=== PATIENT | female | born 1980 | race African-American/Black ===

== ENCOUNTER 2017-01-14 06:08 | Emergency (ER) | payer SELFPAY ==
[~2017-01-14] VITALS: Ht 165.1 cm; Wt 65.0 kg
[2017-01-14] MEDS ORDERED: SODIUM CHLORIDE 0.9% 1,000 ML IV ONE (10:14)
[2017-01-14] MEDS ORDERED: ONDANSETRON HCL 4MG/2ML VIAL IV ONE (10:15)
[2017-01-14] MEDS ORDERED: MORPHINE SULFATE 4 MG/ML CPJ (NOT FOR IM USE) IV ONE (10:15)
[2017-01-14 10:37] LABS: BASOPHILS % 0.4 % (0.0-2.0); EOSINOPHILS % 0.3 % (0.0-5.0); LYMPHOCYTES % 17.6 % (20.0-50.0); MEAN CORPUSCULAR HEMOGLOBIN 29.9 pg (28.0-32.0); MEAN CORPUSCULAR HGB CONC 33.2 g/dL (31.0-37.0); MEAN CORPUSCULAR VOLUME 90.2 fL (81.0-99.0); MEAN PLATELET VOLUME 7.5 fl (7.4-10.4); MONOCYTES % 5.4 % (2.0-8.0); NEUTROPHILS % 76.3 % (40.0-76.0); PLATELET 266 x1000/uL (130-400); RED BLOOD CELL COUNT 3.99 mill/uL (4.2-5.4); RED CELL DISTRIBUTION WIDTH 15.3 % (11.6-14.6); WHITE BLOOD COUNT 8.1 x1000/uL (4.5-11.0)
[2017-01-14 10:43] LABS: ANION GAP 9; CALCIUM 9.3 mg/dL (8.5-10.1); CARBON DIOXIDE 30 mEq/L (21-32); CHLORIDE 106 mEq/L (98-107); INDEX HEMOLYSI 1 (1-3); INDEX ICTERIC 1 (1-4); INDEX LIPEMIC 1 (1-3); UREA NITROGEN BLOOD 6 mg/dL (7-21)
[2017-01-14 10:47] LABS: ALANINE AMINOTRANSFERASE 11 IU/L (13-61); eGFR > 60 mL/min (>60)
[2017-01-14 12:53] LABS: CLARITY URINE CLEAR (CLEAR); GLUCOSE URINE NEGATIVE (NEGATIVE); KETONES URINE NEGATIVE (NEGATIVE); LEUKOCYTE ESTERASE URINE 2+ (NEGATIVE); NITRITE URINE NEGATIVE (NEGATIVE); OCCULT BLOOD URINE 3+ (NEGATIVE); PROTEIN URINE NEGATIVE (NEGATIVE); SPECIFIC GRAVITY URINE 1.007 (1.005-1.030); UROBILINOGEN URINE 0.2 E.U./dL (0.2-1.0)
[2017-01-14 13:21] LABS: COLOR URINE BLOODY (YELLOW)
[2017-01-14 13:22] LABS: BACTERIA URINE TRACE; RBC URINE 50-100 /hpf (0-2); SQUAMOUS EPITHELIAL CELL URINE 1+ /lpf (RARE/1+)
[2017-01-14] MEDS ORDERED: KETOROLAC 30MG/ML VIAL IV ONE (14:15)
[2017-01-14 15:07] VITALS: BP 124/85
== END 2017-01-14 15:11 | disposition home or self-care (01) ==
LOC: ER 08:30
DX: D25.9 Leiomyoma of uterus, unspecified (principal); F17.200 Nicotine dependence, unspecified, uncomplicated; F12.10 Cannabis abuse, uncomplicated; N76.0 Acute vaginitis
CPT/HCPCS: 36415; 76830; 76856; 80053; 81001; 85025; 87210; 87491; 87591; 96361; 96374; 96375; 99285; J1885; J2270; J2405; J7030; Z7610

== ENCOUNTER 2017-01-19 17:51 | Emergency (ER) | payer SELFPAY ==
[~2017-01-19] VITALS: Ht 165.1 cm; Wt 67.0 kg
[2017-01-19] MEDS ORDERED: CEFTRIAXONE SODIUM 250 MG/VIAL IM ONE (20:00)
[2017-01-19] MEDS ORDERED: AZITHROMYCIN 500 MG TABLET PO ONE (20:00)
[2017-01-19] MEDS ORDERED: LIDOCAINE HCL 1% 20ML VIAL (Pyxis) INJ INFIL ONE (20:00)
[2017-01-19 21:30] VITALS: BP 125/85
== END 2017-01-19 22:00 | disposition home or self-care (01) ==
LOC: ER 20:26
DX: A54.9 Gonococcal infection, unspecified (principal); N34.2 Other urethritis; F12.10 Cannabis abuse, uncomplicated
CPT/HCPCS: 96372; 99283; J0696; J3490

== ENCOUNTER 2018-12-17 16:01 | Emergency (ER) | payer MEDICAID ==
[~2018-12-17] VITALS: Ht 162.6 cm; Wt 62.0 kg
[2018-12-17] MEDS ORDERED: KETOROLAC 30MG/ML VIAL IV STA (19:25)
[2018-12-17] MEDS ORDERED: ONDANSETRON HCL 4MG/2ML INJ IV STA (19:25)
[2018-12-17] MEDS ORDERED: SODIUM CHLORIDE 0.9% 1,000 ML IV ONE (19:25)
[2018-12-17] MEDS ORDERED: HYDROCODONE/ACETAMINOPHEN 5/325MG TABLET PO ONE (21:00)
[2018-12-17 22:26] VITALS: BP 137/85
== END 2018-12-17 22:27 | disposition home or self-care (01) ==
LOC: ER 16:01
DX: R51 Headache (principal); F12.10 Cannabis abuse, uncomplicated
CPT/HCPCS: 96374; 96375; 99283; J1885; J2405; J7030